=== PATIENT | female | born 1995 | race African-American/Black ===

== ENCOUNTER 2021-02-25 18:46 | Emergency (ER) | payer SELFPAY ==
[~2021-02-25] VITALS: Ht 165.1 cm; Wt 72.0 kg
[2021-02-25] MEDS ORDERED: ORPHENADRINE CITRATE 60 MG/2 ML VIAL. IM ONE (21:45)
[2021-02-25] MEDS ORDERED: KETOROLAC 15 MG/ML VIAL. IM ONE (21:45)
[2021-02-25 21:47] LABS: BILIRUBIN,URINE SMALL (NEG); CLARITY,URINE CLEAR; COLOR,URINE AMBER; NITRITE,URINE NEGATIVE (NEG); PROTEIN,URINE 30 mg/dL (NEG-TRACE)
[2021-02-25 21:55] LABS: BACTERIA,URINE FEW /HPF (0-FEW)
[2021-02-25 21:56] LABS: RBC,URINE OCC /HPF (0-2)
[2021-02-25 22:30] VITALS: BP 117/75
[2021-02-25] MEDS ORDERED: ORPH100T PO (22:30)
--- NOTE | 2021-02-25 22:30 | PHYS DOC ---
Past Medical History Past Surgical History: No Surgical History Smoking Status: Never Smoker Alcohol Use: None General Adult EDM: Chief Complaint: FLANK PAIN HPI: HPI: Patient is a 26 year old female who presents with 5-day history of left-sided back pain. Patient states her pain is 8/10 and cramping in nature. She says it feels like "spasms." At onset, the pain was in her mid back and intermittent. Now, the pain is mid to low back, constant and worse since onset. Patient denies dysuria, hematuria and radiation of pain laterally or to her groin. Patient states that she works at [employer], and "lifts heavy things" daily. Patient has had her mother massage the area, which has helped some. She states she is currently on her period and denies chance of . Patient denies fever, chills, night sweats, lower extremity pain, paresthesias, trauma or injury. Patient has no other complaints at this time. Review of Systems: Review of Systems: 12 systems reviewed. ROS negative except as mentioned in HPI. Heart Score: C/O Chest Pain: No Current Medications: Current Medications Medications (Trade) Dose Ordered Sig/Ciara Start Time Stop Time Status Last Admin Dose Admin Ketorolac Tromethamine (Toradol 15mg Vial) 15 mg 1X ONCE 02/25/21 21:45 02/25/21 21:46 DC 02/25/21 21:57 15 MG Orphenadrine Citrate (Norflex) 60 mg 1X ONCE 02/25/21 21:45 02/25/21 21:46 DC 02/25/21 21:57 60 MG Allergies: Allergies: Allergies Coded Allergies Type Severity Reaction Last Updated Verified No Known Drug Allergies 02/25/21 No Physical Exam: PE: Constitutional: Well developed, well nourished, no acute distress, non-toxic appearance. Neck: Normal range of motion, no step-offs, no bony tenderness, no paraspinal tenderness. Cardiovascular: Heart rate regular rhythm, no murmur. Lungs & Thorax: Bilateral breath sounds clear to auscultation. Abdomen: Bowel sounds normal, soft, no tenderness, no masses, no pulsatile mass es. Back: No step-offs, no bony tenderness, paraspinal tenderness noted from approximately T10 through lumbar, no CVA tenderness. Extremities: No tenderness, no cyanosis, no clubbing, ROM intact, no edema. Neurologic: Alert and oriented x3, normal motor function, normal sensory function, no focal deficits noted. Psychologic: Affect normal, judgement normal, mood normal. Current Patient Data: Labs: Laboratory Tests Test 02/25/21 21:23 Urine Collection Type Unknown Urine Color Katie Urine Clarity Clear Urine pH 6.0 (<5.0-8.0) Urine Specific Brock >=1.030 (1.000-1.030) Urine Protein 30 mg/dL (NEG-TRACE) Urine Glucose (UA) Negative mg/dL (NEG) Urine Ketones (Stick) Trace mg/dL (NEG) Urine Blood Small (NEG) Urine Nitrite Negative (NEG) Urine Bilirubin Small (NEG) Urine Urobilinogen Dipstick 1.0 mg/dL (0.2 mg/dL) Urine Leukocyte Esterase Negative (NEG) Urine RBC Occ /HPF (0-2) Urine WBC 1-4 /HPF (0-4) Urine Squamous Epithelial Cells Mod /LPF Urine Bacteria Few /HPF (0-FEW) Urine Mucus Marked /LPF Vital Signs: Vital Signs Date Time Temp Pulse Resp B/P (MAP) Pulse Ox O2 Delivery O2 Flow Rate FiO2 02/25/21 21:27 97.7 63 18 141/80 (100) 98 Room Air 97.7 Course & Med Decision Making: Course & Med Decision Making Pertinent Labs and Imaging studies reviewed. (See chart for details) Patient presentation and history consistent with back strain. Urinalysis obtained to rule out kidney infection as source of back pain. Patient pain significantly improved with ketorolac and Norflex. Patient will be discharged home with prescription sent for Norflex, and instruction to use [id number] ibuprofen 800 mg every 6 hours. Patient will be provided with work note for light duty. Patient understands and is agreeable to discharge plan. Dragon Disclaimer: [email or web address] Disclaimer: This electronic medical record was generated, in whole or in part, using a voice recognition dictation system. Departure Departure Impression: Primary Impression: Strain of thoracic back region Disposition: HOME / SELF CARE / HOMELESS Condition: STABLE Referrals: NO PCP (PCP) Patient Instructions: Back Exercises, [id number], Back Pain, Adult, [id number] Additional Instructions: There is no evidence of infection in your urinalysis today. Will be treated for thoracic back strain. You may take Norflex every 12 hours combined with up to 800 mg ibuprofen every 6 hours. Please return to the emergency department if your symptoms worsen or you develop new symptoms. Scripts Orphenadrine Citrate (ORPHENADRINE CITRATE) 100 Mg Tablet.er 1 TAB PO Q12HR, #20 TAB 1 Refill Prov: ANDI ABDULLAHI 02/25/21 ANDI ABDULLAHI Feb 25, 2021 22:30
[2021-02-25 23:03] LABS: U PREG PATIENT NEGATIVE (NEG)
== END 2021-02-25 22:50 | disposition home or self-care (01) ==
LOC: ER 18:46
DX: S29.012A Strain of muscle and tendon of back wall of thorax, initial encounter (principal); M54.50 Low back pain, unspecified; X50.9XXA Other and unspecified overexertion or strenuous movements or postures, initial encounter; Y93.89 Activity, other specified; Y92.69 Other specified industrial and construction area as the place of occurrence of the external cause; Y99.0 Civilian activity done for income or pay
CPT/HCPCS: 81001; 81025; 96372; 99284; J1885; J2360